=== PATIENT | female | born 1970 | race Caucasian/White ===

== ENCOUNTER 2016-03-09 12:37 | Emergency (ER) | payer MEDICAID ==
[~2016-03-09] VITALS: Ht 167.6 cm; Wt 81.0 kg
[~2016-03-09 12:37] MED LIST: 1-ME1LIQ PO; IBUP-232 PO; LAMO100 PO; LEVO.1 PO; PRIN10TA PO
[2016-03-09 12:47] VITALS: BP 124/92; PULSE 90; RESP 16; TEMP 98.6; O2SAT 97
[2016-03-09] MEDS ORDERED: LISI10TA3 PO (12:59)
[2016-03-09] MEDS ORDERED: WELLTAB39 PO (12:59)
[2016-03-09] MEDS ORDERED: LEVO.1 PO (12:59)
[2016-03-09] MEDS ORDERED: ARIP1TAB7 PO (12:59)
[2016-03-09] MEDS ORDERED: TRIAM.1%T TOPICAL (13:05)
[2016-03-09] MEDS ORDERED: PERM5CRE11 TOPICAL (13:05)
[2016-03-09] MEDS ORDERED: BACT800T5 PO (13:05)
--- NOTE | 2016-03-09 13:11 | PD ---
HPI Chief Complaint: Skin Problem Time Seen by Provider: 13:05 Travel History International Travel<30 days: No Contact w/Intl Traveler<30days: No Traveled to known affect area: No History of Present Illness HPI Patient is a 45-year-old female with chief complaint of "I think I have scabies again". She states she has had it several times, most recently 1 year prior. She states that for years she was camping in last evening developed itching. No attempts at palliation. She has "bumps" on her abdomen, buttocks and right arm. She denies any fever, ENT/URI symptoms, difficulty swallowing, change in phonation, wheezing is clear. She denies current . PFSH Past Medical History Blood Disorders: No Bipolar Disorder: Yes Anxiety: Yes Depression: Yes Cancer: No Cardiovascular Problems: Yes (htn on meds) Diabetes: No Diminished Hearing: No Endocrine: No Gastrointestinal Disorders: No Genitourinary: No Hiatal Hernia: No Hypertension: Yes Immune Disorder: No Implanted Vascular Access Dvce: No Musculoskeletal: No Neurologic: No Psychiatric: Yes (INSOMNIA) Reproductive: Yes (POLYCYSTIC OVARIES) Respiratory: No Immunizations Current: No Thyroid Disease: Yes Tetanus Vaccination: < 5 Years PNEUMOCCOCAL Vaccine (Year): 2 ?: Not LMP: 02/28/16 Menopausal: No : 4 Para: 1 Miscarriage: 0 : 3 Ovarian Cysts: Yes (POLY-CYSTIC DISEASE) Past Surgical History Appendectomy: Yes Body Medical Devices: insomnia Gynecologic Surgery: Yes (LEEP PROCEDURE) Joint Replacement: No Other Surgery: Yes Social History Alcohol Use: No Tobacco Use: Yes (2 PPD) Substance Use: No (FORMER PAIN PILLS) Allergies-Medications (Allergen,Severity, Reaction): Coded Allergies: Codeine (Verified Allergy, Severe, REDNESS, 03/09/16) patient states is not allergic to codeine anya Parson 03/09/16 Penicillin (Verified Allergy, Severe, Hives, 03/09/16) Darvocet-N 100 (Verified Adverse Reaction, Mild, NAUSEA, 03/09/16) *MDRO Multi-Drug Resistant Organism (Unverified Adverse Reaction, Unknown , 03/09/16) H/O MRSA per ED note Reported Meds & Prescriptions Reported Meds & Active Scripts Active Reported Abilify (Aripiprazole) 20 Mg Tab 20 Mg PO DAILY Wellbutrin Xl 24 HR (Bupropion HCl) 300 Mg Tab 300 Mg PO DAILY Synthroid (Levothyroxine Sodium) 100 Mcg Tab 100 Mcg PO DAILY Lisinopril 10 Mg Tab 10 Mg PO DAILY Review of Systems Except as stated in HPI: all other systems reviewed are Neg Physical Exam Narrative GENERAL: Well-developed and well-nourished adult female in no acute distress. SKIN: Patient has excoriations to the abdomen, buttocks, upper back and right forearm in various stages of healing with 2 areas of the bilateral upper back as likely as well a dry thinks mild cellulitis without induration or fluctuance. No warmth or discharge. Her are a few papular lesions on the abdomen and buttocks do appear to be in linear fashion consistent with scabies. Warm and dry. Good turgor without tenting. HEAD: Normocephalic and atraumatic. EYES: PERRL bilaterally, 5mm. EOMI bilaterally. No injection or icterus present. No proptosis. Lids without edema or erythema. ENT: Buccal mucosa pink and moist. Oropharynx free of erythema, tonsillar hypertrophy, masses, swelling, asymmetry and exudates. Uvula midline and airway patent. NECK: Supple, no midline tenderness, crepitus or step-offs. Trachea midline, no JVD. No cervical or facial lymphadenopathy. CARDIOVASCULAR: Regular rate and rhythm without murmurs, rubs, clicks or gallops. RESPIRATORY: Clear to auscultation bilaterally with symmetrical rise and fall, no distress or use of accessory muscles. MUSCULOSKELETAL: No gait disturbances. Patient freely moving all four extremities spontaneously. Extremities without clubbing, cyanosis, or edema. No obvious deformities. NEUROLOGIC: CN II-XII grossly intact. Awake and alert. Motor grossly within normal limits. Normal speech. PSYCHIATRIC: Appropriate mood and affect; insight and judgment normal. *Patient was examined in the presence of a nurse, Nelly, at all times* Data Data Last Documented VS Vital Signs Date Time Temp Pulse Resp B/P Pulse Ox O2 Delivery O2 Flow Rate FiO2 03/09/16 12:47 98.6 90 16 124/92 97 MDM Medical Decision Making Medical Screen Exam Complete: Yes Emergency Medical Condition: Yes Differential Diagnosis Scabies versus psychogenic pruritus versus dermatitis versus contact dermatitis versus cellulitis Narrative Course She is a 45-year-old female with a history of scabies presenting with concern that she has developed scabies again. She states that the itching and lesions in the last evening however shows some excoriations and minor cellulitis that appeared to be at least several days old. There are some papular lesions on the abdomen that are suggestive of scabies. She is afebrile and nontoxic appearing. His history of multidrug resistant organism, we'll prescribe Bactrim for cellulitis, Elimite and triamcinolone for the itching and possible scabies. Patient was recommended to clean all clothing and bedding in hot water setting available and follow-up with PCP or her hand edge bander.See discharge paperwork for further instructions. The plan was discussed with the patient who acknowledged their understanding and agreement. Reinforced the follow-up with primary care is critically important. Patient instructed on emergent conditions that should prompt return to ED. Diagnosis Primary Impression: Scabies Additional Impressions: Excoriation Cellulitis Qualified Code: L03.312 - Cellulitis of back except buttock Patient Instructions: Cellulitis (ED), General Instructions, Scabies (ED) Departure Forms: Tests/Procedures Additional Instructions: Take medication as prescribed Avoid scratching or picking at lesions Wash bedding and clothing in the hottest water setting available Follow-up with PCP in one to 2 days Return to the ED for any acute worsening of symptoms Med/Other Pt SpecificInfo: Prescription(s) given Scripts Triamcinolone Topical 0.1 % Oint1 Applic TOPICAL BID PRN (ITCHING) [address] on the face, neck or groin Prov:Bernie Elise MD 03/09/16 Permethrin Topical (Elimite Topical)5% Cream1 Applic TOPICAL ONCE #1 TUBE Apply from head to toe overnight and leave on for at least 8 hours and wash off in the morning, may repeat in 14 days if symptoms still present Prov:Bernie Elise MD 03/09/16 Sulfamethoxazole-Trimethoprim (Bactrim DS)800-160 Mg Tab1 Tab PO BID #20 TAB Prov:Bernie Elise MD 03/09/16 Disposition: 01 DISCHARGE HOME Condition: Stable Siddharth Merritt III Mar 09, 2016 13:10
== END 2016-03-09 13:31 | disposition home or self-care (01) ==
LOC: PHEFT 12:37
DX: B86 Scabies (principal); L03.312 Cellulitis of back [any part except buttock and flank]; I10 Essential (primary) hypertension; E07.9 Disorder of thyroid, unspecified; F17.210 Nicotine dependence, cigarettes, uncomplicated
CPT/HCPCS: 99282

== ENCOUNTER 2016-05-25 18:28 | Emergency (ER) | payer MEDICAID ==
[~2016-05-25] VITALS: Ht 167.6 cm; Wt 80.5 kg
[~2016-05-25 18:28] MED LIST changes: -1-ME1LIQ PO; +ARIP1TAB7 PO; +BACT800T5 PO; -IBUP-232 PO; -LAMO100 PO; +LISI10TA3 PO; +PERM5CRE11 TOPICAL; -PRIN10TA PO; +TRIAM.1%T TOPICAL; +WELLTAB39 PO
[2016-05-25 18:51] VITALS: BP 143/101; PULSE 91; RESP 17; TEMP 97.9; O2SAT 98
[2016-05-25] MEDS ORDERED: VENL75TA PO (20:01)
[2016-05-25] MEDS ORDERED: AMLO2.5T PO (20:01)
[2016-05-25] MEDS ORDERED: LITH300T3 PO (20:01)
--- NOTE | 2016-05-25 20:44 | PD ---
HPI Chief Complaint: Anxiety Time Seen by Provider: 20:31 Travel History International Travel<30 days: No Contact w/Intl Traveler<30days: No Traveled to known affect area: No History of Present Illness HPI The patient is a 45-year-old female that complains of anxiety, chest tightness, palpitations. 4 days. The patient knows this is a panic attack, she has had these before. She is followed by her primary care physician in [place]. She states there is no possibility of . She states she is going to follow-up with an vice president sales and marketing, this was recommended, she currently takes Synthroid. The patient also takes Effexor, Wellbutrin and lithium. Blood pressure medications are lisinopril and amlodipine. PFSH Past Medical History Blood Disorders: No Bipolar Disorder: Yes Anxiety: Yes Depression: Yes Cancer: No Cardiovascular Problems: Yes (htn on meds) Diabetes: No Diminished Hearing: No Endocrine: No Gastrointestinal Disorders: No Genitourinary: No Hiatal Hernia: No Hypertension: Yes Immune Disorder: No Implanted Vascular Access Dvce: No Musculoskeletal: No Neurologic: No Psychiatric: Yes (INSOMNIA) Reproductive: Yes (POLYCYSTIC OVARIES) Respiratory: No Immunizations Current: No Thyroid Disease: Yes PNEUMOCCOCAL Vaccine (Year): 2 ?: Not LMP: 2 WEEKS 05/14/16 Menopausal: No : 4 Para: 1 Miscarriage: 0 : 3 Ovarian Cysts: Yes (POLY-CYSTIC DISEASE) Past Surgical History Surgical History: No Previous Surgery Appendectomy: Yes Body Medical Devices: insomnia Gynecologic Surgery: Yes (LEEP PROCEDURE) Joint Replacement: No Other Surgery: Yes Social History Alcohol Use: No Tobacco Use: Yes (1 pd) Substance Use: No (FORMER PAIN PILLS) Allergies-Medications (Allergen,Severity, Reaction): Coded Allergies: Codeine (Verified Allergy, Severe, REDNESS, 05/25/16) patient states is not allergic to codeine anya Parson 03/09/16 Penicillin (Verified Allergy, Severe, Hives, 05/25/16) Darvocet-N 100 (Verified Adverse Reaction, Mild, NAUSEA, 05/25/16) *MDRO Multi-Drug Resistant Organism (Unverified Adverse Reaction, Unknown , 05/25/16) H/O MRSA per ED note Reported Meds & Prescriptions Reported Meds & Active Scripts Active Reported Amlodipine (Amlodipine Besylate) 2.5 Mg Tab 5 Mg PO DAILY Effexor (Venlafaxine HCl) 75 Mg Tab 75 Mg PO DAILY [place] Carbonate 300 Mg Tab 300 Mg PO BID Wellbutrin Xl 24 HR (Bupropion HCl) 300 Mg Tab 300 Mg PO DAILY Synthroid (Levothyroxine Sodium) 100 Mcg Tab 100 Mcg PO DAILY Lisinopril 10 Mg Tab 10 Mg PO DAILY Review of Systems Except as stated in HPI: all other systems reviewed are Neg Physical Exam Narrative GENERAL: The patient is alert, oriented 3, anxious in no apparent distress other than her anxiety. Her vital signs show blood pressure 143/101 but are otherwise normal. SKIN: Focused skin assessment warm/dry. The hair is dry and the patient states it is falling out. She denies pulling at her hair. HEAD: Atraumatic. Normocephalic. EYES: Pupils equal and round. No scleral icterus. No injection or drainage. ENT: No nasal bleeding or discharge. Mucous membranes pink and moist. NECK: Trachea midline. No JVD. CARDIOVASCULAR: Regular rate and rhythm. No murmur appreciated. RESPIRATORY: No accessory muscle use. Clear to auscultation. Breath sounds equal bilaterally. GASTROINTESTINAL: Abdomen soft, non-tender, nondistended. Hepatic and splenic margins not palpable. MUSCULOSKELETAL: No obvious deformities. No clubbing. No cyanosis. No edema. NEUROLOGICAL: Awake and alert. No obvious cranial nerve deficits. Motor grossly within normal limits. Normal speech. PSYCHIATRIC: Appropriate mood and affect; insight and judgment normal. Data Data Last Documented VS Vital Signs Date Time Temp Pulse Resp B/P Pulse Ox O2 Delivery O2 Flow Rate FiO2 05/25/16 18:51 97.9 91 17 143/101 98 Orders Alprazolam (Xanax) (05/25/16 20:45) Complete Blood Count With Diff (05/25/16 20:44) Basic Metabolic Panel (Bmp) (05/25/16 20:44) Thyroid Stimulating Hormone (05/25/16 20:44) [place] (Li) (05/25/16 20:44) Labs Laboratory Tests Test 05/25/16 20:55 White Blood Count 12.5 TH/MM3 Red Blood Count 4.70 MIL/MM3 Hemoglobin 14.4 GM/DL Hematocrit 42.2 % Mean Corpuscular Volume 89.9 FL Mean Corpuscular Hemoglobin 30.6 PG Mean Corpuscular Hemoglobin 34.0 % Concent Red Cell Distribution Width 13.9 % Platelet Count 235 TH/MM3 Mean Platelet Volume 8.7 FL Neutrophils (%) (Auto) 78.4 % Lymphocytes (%) (Auto) 16.3 % Monocytes (%) (Auto) 3.4 % Eosinophils (%) (Auto) 1.3 % Basophils (%) (Auto) 0.6 % Neutrophils # (Auto) 9.8 TH/MM3 Lymphocytes # (Auto) 2.0 TH/MM3 Monocytes # (Auto) 0.4 TH/MM3 Eosinophils # (Auto) 0.2 TH/MM3 Basophils # (Auto) 0.1 TH/MM3 CBC Comment DIFF FINAL Differential Comment Sodium Level 137 MEQ/L Potassium Level 3.8 MEQ/L Chloride Level 102 MEQ/L Carbon Dioxide Level 26.9 MEQ/L Anion Gap 8 MEQ/L Blood Urea Nitrogen 12 MG/DL Creatinine 0.86 MG/DL Estimat Glomerular Filtration 71 ML/MIN Rate Random Glucose 76 MG/DL Calcium Level 8.9 MG/DL Thyroid Stimulating Hormone 2.700 uIU/ML [address] [place] [address] Medical Decision Making Medical Screen Exam Complete: Yes Emergency Medical Condition: Yes Medical Record Reviewed: Yes Interpretation(s) The basic metabolic profile shows a GFR of 71 but is otherwise normal. The TSH is 2.7. The CBC shows a white count of 12,500 with 78% neutrophils but is otherwise normal. Differential Diagnosis Hyperthyroid, hypothyroid, anxiety reaction, elevated lithium level, electrolyte disorder, hypoglycemiaunlikely Narrative Course The patient appears to have an anxiety reaction. She appears to be critically adjusted on her thyroid medication and she has no hypoglycemia or electrolyte disorder. The lithium level will be completed until many hours, it was drawn an hour ago and still has not been picked up by the party supply specialist. It is unlikely that the patient has an elevated lithium level. She was just started on lithium. Plan: The patient will be given 3, 1 mg Xanax tablets to take at home. She is to follow-up with her primary care physician next week. She is encouraged to exercise. She came in stating she could not swallow but she had no problem swallowing the Xanax tablet with water here in emergency department. Diagnosis Primary Impression: Anxiety reaction Additional Instructions: Do not drink alcohol or drive on the Xanax. Exercise often works when you get anxious, you should try thismany people do this when they get anxious. Follow- up next week with your primary care physician. Med/Other Pt SpecificInfo: Prescription(s) given Scripts Alprazolam (Xanax)1 Mg Tab1 Mg PO Q8H PRN (ANXIETY) #3 TAB Ref 0 Prov:Broderick Flores MD 05/25/16 Disposition: 01 DISCHARGE HOME Condition: Stable Broderick Flores MD May 25, 2016 20:44
[2016-05-25] MEDS ORDERED: ALPRAZolam 0.5 MG TAB PO ONE (20:45)
[2016-05-25] MEDS ORDERED: ALPRAZolam 1 MG TAB PO ONE (20:45)
[2016-05-25 21:06] LABS: AUTOMATED NEUTROPHIL # 9.8 TH/MM3 (1.8-7.7); BASOPHIL # 0.1 TH/MM3 (0-0.2); BASOPHIL % 0.6 % (0.0-2.0); EOSINOPHIL # 0.2 TH/MM3 (0-0.4); EOSINOPHIL % 1.3 % (0.0-4.0); HEMATOCRIT 42.2 % (35.0-46.0); LYMPH % 16.3 % (9.0-44.0); MEAN CELL VOLUME 89.9 FL (80.0-100.0); MEAN CORPUSCULAR HEMOGLOBIN 30.6 PG (27.0-34.0); MONO % 3.4 % (0.0-8.0); NEUT % 78.4 % (16.0-70.0); PLATELET COUNT 235 TH/MM3 (150-450); RED CELL DISTRIBUTION WIDTH 13.9 % (11.6-17.2); WHITE BLOOD COUNT 12.5 TH/MM3 (4.0-11.0)
[2016-05-25 21:09] LABS: HEMO FLAGS DIFF FINAL
[2016-05-25 21:16] LABS: POTASSIUM 3.8 MEQ/L (3.5-5.1)
[2016-05-25 21:19] LABS: BICARBONATE 26.9 MEQ/L (21.0-32.0)
[2016-05-25] MEDS ORDERED: XANA1TAB2 PO (22:07)
== END 2016-05-25 22:14 | disposition home or self-care (01) ==
LOC: PHED 18:28
DX: F41.9 Anxiety disorder, unspecified (principal)
CPT/HCPCS: 80048; 80178; 84443; 85025; 99283

== ENCOUNTER 2016-06-01 17:55 | Emergency (ER) | payer MEDICAID ==
[~2016-06-01] VITALS: Ht 167.6 cm; Wt 80.0 kg
[2016-06-01] VITALS (9 sets, daily range): BP systolic 137–156; BP diastolic 71–97; PULSE 74–88; RESP 16–18; TEMP 99; O2SAT 96–100
[~2016-06-01 17:55] MED LIST changes: +AMLO2.5T PO; -ARIP1TAB7 PO; -BACT800T5 PO; +LITH300T3 PO; -PERM5CRE11 TOPICAL; -TRIAM.1%T TOPICAL; +VENL75TA PO; +XANA1TAB2 PO
[2016-06-01] MEDS ORDERED: SODIUM CHLORIDE 0.9% FLUSH 10 ML FLUSH IVF PRN (19:15)
[2016-06-01] MEDS ORDERED: ASPIRIN 81 MG CHEW TAB PO ONE (19:15)
[2016-06-01] MEDS: NITROGLYCERIN 0.4 MG SL 25 TABS/BTL SL SCH ×3 (19:20→19:48)
[2016-06-01 19:50] LABS: AUTOMATED NEUTROPHIL # 7.2 TH/MM3 (1.8-7.7); BASOPHIL % 0.4 % (0.0-2.0); EOSINOPHIL # 0.1 TH/MM3 (0-0.4); EOSINOPHIL % 1.5 % (0.0-4.0); HEMATOCRIT 43.1 % (35.0-46.0); HEMO FLAGS DIFF FINAL; LYMPH % 20.4 % (9.0-44.0); MEAN CELL VOLUME 90.3 FL (80.0-100.0); MEAN CORPUSCULAR HEMOGLOBIN 30.8 PG (27.0-34.0); MEAN CORPUSCULAR HGB CONC 34.1 % (32.0-36.0); MONO % 5.7 % (0.0-8.0); PLATELET COUNT 189 TH/MM3 (150-450); RED BLOOD COUNT 4.77 MIL/MM3 (4.00-5.30); RED CELL DISTRIBUTION WIDTH 14.4 % (11.6-17.2); WHITE BLOOD COUNT 9.9 TH/MM3 (4.0-11.0)
[2016-06-01 19:57] LABS: CHLORIDE 102 MEQ/L (98-107); POTASSIUM 3.6 MEQ/L (3.5-5.1); SODIUM (NA) 138 MEQ/L (136-145)
[2016-06-01 20:00] LABS: ANION GAP 10 MEQ/L (5-15); BICARBONATE 26.1 MEQ/L (21.0-32.0); MAGNESIUM 2.2 MG/DL (1.5-2.5)
[2016-06-01] MEDS ORDERED: ONDANSETRON HCL 4 MG/2 ML VIAL IV PUSH ONE (20:00)
[2016-06-01] MEDS ORDERED: HYDROmorphone HCL PF 1 MG/ML VIAL IV PUSH ONE (20:00)
[2016-06-01 20:01] LABS: BLOOD UREA NITROGEN 11 MG/DL (7-18)
--- NOTE | 2016-06-01 20:01 | RADHPO ---
EXAM DATE/TIME: 06/01/2016 19:07 [facility] COMPARISON: No previous studies available for comparison. INDICATIONS : Chest pain and hypertension. MEDICAL HISTORY : Hypertension. SURGICAL HISTORY : None. ENCOUNTER: Initial ACUITY: 1 day PAIN SCORE: 5/10 LOCATION: Bilateral chest FINDINGS: A single view of the chest demonstrates the lungs to be symmetrically aerated without evidence of mas s, infiltrate or effusion. The cardiomediastinal contours are unremarkable. Osseous structures are intact. CONCLUSION: The lungs are clear. Alexx Barber MD on June 01, 2016 at 19:59 Board Certified Radiologist. This report was verified electronically.
[2016-06-01 20:03] LABS: APTT (PATIENT) 26.8 SEC (24.3-30.1); PROTHROMBIN TIME - PATIENT 10.5 SEC (9.8-11.6)
[2016-06-01 20:04] LABS: GLOMERULAR FILTRATION RATE 77 ML/MIN (>89)
[2016-06-01 20:14] LABS: CREATINE KINASE 57 U/L (26-192)
[2016-06-01] MEDS ORDERED: KETOROLAC TROMETHAMINE 30 MG/ML (IVP) VIAL IV PUSH ONE (20:45)
--- NOTE | 2016-06-01 20:45 | PD ---
HPI Chief Complaint: Hypertension Time Seen by Provider: 19:57 Travel History International Travel<30 days: No Contact w/Intl Traveler<30days: No Traveled to known affect area: No History of Present Illness HPI 45-year-old female presents to the emergency department for complaint of not feeling well times one day. Patient has noted that her blood pressure is been quite elevated reportedly at home but pressure was 200/140. Patient takes amlodipine for blood pressure management and does not know the dose but has not had a change in the dose for several years. Patient has had no nausea no vomiting no shortness of breath no referred neck jaw back shoulder or arm pain. Chest pain is sharp in nature and is worsened by palpating her chest wall. No abdominal pain. Patient states that he has had episodes of sweating. Patient does check her blood pressure prior to coming to the emergency room because she could not get her blood pressure cuff that with her roommates room. Patient does not report any headache blurred vision double vision confusion change in speech or upper or lower extremity numbness tingling or weakness or ataxia of gait. Patient rates pain 8/10 intensity. PFSH Past Medical History Narrative Medical Hypertension, bipolar disorder, polycystic ovary disease, LEEP procedure, appendectomy, tobacco use; nursing notes reviewed Blood Disorders: No Bipolar Disorder: Yes Anxiety: Yes Depression: Yes Cancer: No Cardiovascular Problems: Yes (htn on meds) Diabetes: No Diminished Hearing: No Endocrine: No Gastrointestinal Disorders: No Genitourinary: No Hiatal Hernia: No Hypertension: Yes Immune Disorder: No Implanted Vascular Access Dvce: No Musculoskeletal: No Neurologic: No Psychiatric: Yes (INSOMNIA) Reproductive: Yes (POLYCYSTIC OVARIES) Respiratory: No Immunizations Current: No Thyroid Disease: Yes PNEUMOCCOCAL Vaccine (Year): 2 ?: Not LMP: two weeks ago Menopausal: No : 4 Para: 1 Miscarriage: 0 : 3 Ovarian Cysts: Yes (POLY-CYSTIC DISEASE) Past Surgical History Appendectomy: Yes Body Medical Devices: insomnia Gynecologic Surgery: Yes (LEEP PROCEDURE) Joint Replacement: No Other Surgery: Yes Social History Alcohol Use: No Tobacco Use: Yes (1 pd) Substance Use: No (FORMER PAIN PILLS) Allergies-Medications (Allergen,Severity, Reaction): Coded Allergies: Codeine (Verified Allergy, Severe, REDNESS, 05/25/16) patient states is not allergic to codeine anya Parson 03/09/16 Penicillin (Verified Allergy, Severe, Hives, 05/25/16) Darvocet-N 100 (Verified Adverse Reaction, Mild, NAUSEA, 05/25/16) *MDRO Multi-Drug Resistant Organism (Unverified Adverse Reaction, Unknown , 05/25/16) H/O MRSA per ED note Reported Meds & Prescriptions Reported Meds & Active Scripts Active Reported Amlodipine (Amlodipine Besylate) 2.5 Mg Tab 5 Mg PO DAILY Effexor (Venlafaxine HCl) 75 Mg Tab 75 Mg PO DAILY [place] Carbonate 300 Mg Tab 300 Mg PO BID Wellbutrin Xl 24 HR (Bupropion HCl) 300 Mg Tab 300 Mg PO DAILY Synthroid (Levothyroxine Sodium) 100 Mcg Tab 100 Mcg PO DAILY Review of Systems Except as stated in HPI: all other systems reviewed are Neg Physical Exam Narrative GENERAL: Well-developed well-nourished female in no acute distress no respiratory distress SKIN: Warm and dry. HEAD: Atraumatic. Normocephalic. EYES: Pupils equal and round. No scleral icterus. No injection or drainage. ENT: No nasal bleeding or discharge. Mucous membranes pink and moist. NECK: Trachea midline. No JVD. CARDIOVASCULAR: Regular rate and rhythm. RESPIRATORY: No accessory muscle use. Clear to auscultation. Breath sounds equal bilaterally. GASTROINTESTINAL: Abdomen soft, non-tender, nondistended. Hepatic and splenic margins not palpable. MUSCULOSKELETAL: Extremities without clubbing, cyanosis, or edema. No obvious deformities. NEUROLOGICAL: Awake and alert. No obvious cranial nerve deficits. Motor grossly within normal limits. Five out of 5 muscle strength in the arms and legs. Normal speech. PSYCHIATRIC: Appropriate mood and affect; insight and judgment normal. Data Data Last Documented VS Vital Signs Date Time Temp Pulse Resp B/P Pulse Ox O2 Delivery O2 Flow Rate FiO2 06/01/16 22:50 72 17 152/85 97 06/01/16 21:59 Room Air 06/01/16 17:58 99.0 Orders Electrocardiogram (06/01/16 19:04) Basic Metabolic Panel (Bmp) (06/01/16 19:04) Ckmb (Isoenzyme) Profile (06/01/16 19:04) Complete Blood Count With Diff (06/01/16 19:04) Magnesium (Mg) (06/01/16 19:04) Prothrombin Time / Inr (Pt) (06/01/16 19:04) Act Partial Throm Time (Ptt) (06/01/16 19:04) Troponin I (06/01/16 19:04) Chest, Single Ap (06/01/16 19:04) Ecg Monitoring (06/01/16 19:04) Bilateral Bp Monitoring (06/01/16 19:04) Iv Access Insert/Monitor (06/01/16 19:04) Oximetry (06/01/16 19:04) Oxygen Administration (06/01/16 19:04) Aspirin Chew (Aspirin Chew) (06/01/16 19:15) Sodium Chloride 0.9% Flush (Ns Flush) (06/01/16 19:15) Nitroglycerin Sl (Nitrostat Sl) (06/01/16 19:15) [place] (Li) (06/01/16 19:04) Ondansetron Inj (Zofran Inj) (06/01/16 20:00) Hydromorphone Pf Inj (Dilaudid Pf Inj) (06/01/16 20:00) Ketorolac Inj (Toradol Inj) (06/01/16 20:45) Nitroglycerin 2% Oint (Nitroglycerin 2% (06/01/16 21:45) Labs Laboratory Tests Test 06/01/16 19:20 White Blood Count 9.9 TH/MM3 Red Blood Count 4.77 MIL/MM3 Hemoglobin 14.7 GM/DL Hematocrit 43.1 % Mean Corpuscular Volume 90.3 FL Mean Corpuscular Hemoglobin 30.8 PG Mean Corpuscular Hemoglobin 34.1 % Concent Red Cell Distribution Width 14.4 % Platelet Count 189 TH/MM3 Mean Platelet Volume 9.1 FL Neutrophils (%) (Auto) 72.0 % Lymphocytes (%) (Auto) 20.4 % Monocytes (%) (Auto) 5.7 % Eosinophils (%) (Auto) 1.5 % Basophils (%) (Auto) 0.4 % Neutrophils # (Auto) 7.2 TH/MM3 Lymphocytes # (Auto) 2.0 TH/MM3 Monocytes # (Auto) 0.6 TH/MM3 Eosinophils # (Auto) 0.1 TH/MM3 Basophils # (Auto) 0.0 TH/MM3 CBC Comment DIFF FINAL Differential Comment Prothrombin Time 10.5 SEC Prothromb Time International 1.0 RATIO Ratio Activated Partial 26.8 SEC Thromboplast Time Sodium Level 138 MEQ/L Potassium Level 3.6 MEQ/L Chloride Level 102 MEQ/L Carbon Dioxide Level 26.1 MEQ/L Anion Gap 10 MEQ/L Blood Urea Nitrogen 11 MG/DL Creatinine 0.80 MG/DL Estimat Glomerular Filtration 77 ML/MIN Rate Random Glucose 86 MG/DL Calcium Level 8.9 MG/DL Magnesium Level 2.2 MG/DL Total Creatine Kinase 57 U/L Troponin I LESS THAN 0.02 NG/ML [place] Level 0.2 MEQ/L [facility] Medical Decision Making Medical Screen Exam Complete: Yes Emergency Medical Condition: Yes Medical Record Reviewed: Yes Interpretation(s) EKG normal sinus rhythm rate [address] elevation or injury pattern change noted Last Impressions Chest X-Ray 06/01/161903 Signed Impressions: Service Date/Time: Wednesday, June 01, 2016 19:07 - CONCLUSION: The lungs are clear. Alexx Barber MD CBC & BMP Diagram 06/01/16 19:20 Vital Signs Date Time Temp Pulse Resp B/P Pulse Ox O2 Delivery O2 Flow Rate FiO2 06/01/16 20:15 Room Air 06/01/16 20:15 Room Air 06/01/16 20:13 80 16 141/85 96 Room Air 142/79 06/01/16 19:00 88 18 150/92 98 Room Air 06/01/16 19:00 Room Air 06/01/16 18:46 80 18 156/97 100 Room Air 06/01/16 17:58 99.0 87 18 152/90 96 Room Air Troponin I: Less than 0.02, not elevated [place]: 0.2, not elevated not toxic Differential Diagnosis Uncontrolled hypertension hypertensive urgency chest pain ACS TN aortic dissection musculoskeletal/chest wall pain Narrative Course @ 8:44 PM blood pressure has improved; headache resolved; reproducible palpable sharp chest wall pain unchanged Patient administered aspirin and supplemental nitroglycerin. After one sublingual nitroglycerin patient developed headache and refused any further nitroglycerin and stated her sharp chest pain was not relieved and chest wall tenderness was not improved. Patient's blood pressure has improved continues to complain of headache post nitroglycerin sublingual and sharp chest pain administered Zofran and Dilaudid 0.5 mg IV Patient reports headache is resolved but continues to have tenderness to the chest wall patient administered Toradol 30 mg IV Patient administered nitro paste 1 inch to the chest wall and symptoms resolved patient informed of plan to admit to chest pain center for chest pain as well as poorly controlled hypertension; patient refuses admission. Discussed in detail risk benefit of staying in the hospital versus leaving AGAINST MEDICAL ADVICE. Patient reports that she understands her questions have been answered to her satisfaction but she still made the decision to leave AGAINST MEDICAL ADVICE. AMA: The risks of leaving against medical advice without further evaluation treatment were discussed with the patient. These risks include cardiac dysfunction, cardiac dysrhythmia, possible heart attack, possible stroke or . The patient indicated understanding of these risks and appeared to have the capacity to make this decision. Diagnosis Primary Impression: Hypertension, poor control Additional Impression: Chest pain Disposition: 07 AGAINST MEDICAL ADVICE Condition: Stable Gladis Carlos MD Jun 01, 2016 20:45
[2016-06-01] MEDS ORDERED: NITROGLYCERIN 2% OINT 1 GM PACKET TOPICAL ONE (21:45)
--- NOTE | 2016-06-01 23:43 | EKG ---
Date Performed: 06/01/2016 Time Performed: 19:10:46 PTAGE: 45 years EKG: Sinus rhythm . Normal ECG PREVIOUS TRACING : 11/13/2011 15.33 DOCTOR: Maikol Ruby Interpretating Date/Time 06/01/2016 23:41:54
== END 2016-06-01 23:02 | disposition left against medical advice (07) ==
LOC: PHED 17:55
DX: I10 Essential (primary) hypertension (principal); R07.9 Chest pain, unspecified; E28.2 Polycystic ovarian syndrome; E07.9 Disorder of thyroid, unspecified; F31.9 Bipolar disorder, unspecified; F41.9 Anxiety disorder, unspecified; F17.200 Nicotine dependence, unspecified, uncomplicated; Z86.14 Personal history of Methicillin resistant Staphylococcus aureus infection
CPT/HCPCS: 71010; 80048; 80178; 82550; 83735; 84484; 85025; 85610; 85730; 93005; 96374; 96375; 99285; J1170; J1885; J2405

== ENCOUNTER 2017-04-30 16:28 | Emergency (ER) | payer MEDICAID ==
[~2017-04-30] VITALS: Ht 167.6 cm; Wt 97.0 kg
[~2017-04-30 16:28] MED LIST changes: -LISI10TA3 PO; -XANA1TAB2 PO
[2017-04-30 16:35] VITALS: BP 135/70; PULSE 90; RESP 16; TEMP 99.3; O2SAT 97
[2017-04-30] MEDS ORDERED: SODIUM CHLOR 0.9% 1000 ML INJ 1,000 ML IV SCH (17:33)
[2017-04-30 17:38] LABS: AUTOMATED NEUTROPHIL # 5.6 TH/MM3 (1.8-7.7); BASOPHIL % 0.4 % (0.0-2.0); EOSINOPHIL # 0.1 TH/MM3 (0-0.4); EOSINOPHIL % 0.8 % (0.0-4.0); HEMATOCRIT 38.4 % (35.0-46.0); HEMOGLOBIN 13.2 GM/DL (11.6-15.3); LYMPH % 28.4 % (9.0-44.0); LYMPHOCYTE # 2.5 TH/MM3 (1.0-4.8); MEAN CELL VOLUME 83.6 FL (80.0-100.0); MEAN CORPUSCULAR HEMOGLOBIN 28.7 PG (27.0-34.0); MEAN CORPUSCULAR HGB CONC 34.4 % (32.0-36.0); MEAN PLATELET VOLUME 8.7 FL (7.0-11.0); MONO % 5.3 % (0.0-8.0); MONOCYTE # 0.5 TH/MM3 (0-0.9); NEUT % 65.1 % (16.0-70.0); PLATELET COUNT 229 TH/MM3 (150-450); RED BLOOD COUNT 4.59 MIL/MM3 (4.00-5.30); RED CELL DISTRIBUTION WIDTH 13.2 % (11.6-17.2); WHITE BLOOD COUNT 8.6 TH/MM3 (4.0-11.0)
--- NOTE | 2017-04-30 17:39 | PD ---
HPI Chief Complaint: GI Complaint Time Seen by Provider: 17:24 Travel History International Travel<30 days: No Contact w/Intl Traveler<30days: No Traveled to known affect area: No History of Present Illness HPI 46-year-old female currently in recovery for narcotic abuse, presents the emergency department with upper abdominal cramping, nausea, vomiting, with question of hemoptysis in the last 2 days. Patient also states occasional diarrhea. Patient denies fever, chills, urinary symptoms, or vaginal symptoms. Patient denies chest pain or shortness of breath. Patient has no upper respiratory symptoms. Pain is about an 8 out of 10. Patient does not want any narcotics. Patient has history of MRSA, is allergic to Tylenol, codeine, penicillin, and propoxyphene. PFSH Past Medical History Blood Disorders: No Bipolar Disorder: Yes Anxiety: Yes Depression: Yes Cancer: No Cardiovascular Problems: Yes (htn on meds) Diabetes: No Diminished Hearing: No Endocrine: No Gastrointestinal Disorders: No Genitourinary: No Hiatal Hernia: No Hypertension: Yes Immune Disorder: No Implanted Vascular Access Dvce: No Musculoskeletal: No Neurologic: No Psychiatric: Yes (INSOMNIA) Reproductive: Yes (POLYCYSTIC OVARIES) Respiratory: No Immunizations Current: No Thyroid Disease: Yes PNEUMOCCOCAL Vaccine (Year): 2 Menopausal: No : 4 Para: 1 Miscarriage: 0 : 3 Ovarian Cysts: Yes (POLY-CYSTIC DISEASE) Past Surgical History Appendectomy: Yes Body Medical Devices: insomnia Gynecologic Surgery: Yes (LEEP PROCEDURE) Joint Replacement: No Other Surgery: Yes Social History Alcohol Use: No Tobacco Use: Yes (1 pd) Substance Use: No (FORMER PAIN PILLS) Allergies-Medications (Allergen,Severity, Reaction): Coded Allergies: codeine (Unverified Allergy, Severe, REDNESS, 04/30/17) patient states is not allergic to codeine anya Parson 03/09/16 penicillin G (Unverified Allergy, Severe, Hives, 04/30/17) acetaminophen (Unverified Adverse Reaction, Mild, NAUSEA, 04/30/17) propoxyphene (Unverified Adverse Reaction, Mild, NAUSEA, 04/30/17) *MDRO Multi-Drug Resistant Organism (Unverified Adverse Reaction, Unknown , 04/30/17) H/O MRSA per ED note Reported Meds & Prescriptions Reported Meds & Active Scripts Active Reported Trazodone (Trazodone HCl) 150 Mg Tablet 150 Mg PO HS Latuda (Lurasidone) 60 Mg Tab 60 Mg PO DAILY Amlodipine (Amlodipine Besylate) 2.5 Mg Tab 5 Mg PO DAILY Effexor (Venlafaxine HCl) 75 Mg Tab 75 Mg PO DAILY Synthroid (Levothyroxine Sodium) 100 Mcg Tab 100 Mcg PO DAILY Review of Systems Except as stated in HPI: all other systems reviewed are Neg General / Constitutional: No: Fever Eyes: No: Visual changes HENT: No: Headaches Cardiovascular: No: Chest Pain or Discomfort Respiratory: No: Shortness of Breath Gastrointestinal: Positive: Nausea, Vomiting, Diarrhea, Abdominal Pain, Hematemesis, No: Hematochezia, Constipation, Changes in Bowel Habits, Indigestion, Dysphagia, Loss of Appetite Genitourinary: No: Dysuria Musculoskeletal: No: Pain Skin: No Rash Neurologic: No: Weakness Psychiatric: No: Depression Endocrine: No: Polydipsia Hematologic/Lymphatic: No: Easy Bruising Physical Exam Narrative GENERAL: Patient appears anxious but otherwise in mild distress. SKIN: Warm and dry. Normal color. Normal turgor. HEAD: Atraumatic. Normocephalic. EYES: Pupils equal and round. No scleral icterus. No injection or drainage. ENT: No nasal bleeding or discharge. Mucous membranes pink and moist. Pharynx is clear. Airway is patent. NECK: Trachea midline. Supple and nontender. CARDIOVASCULAR: Regular rate and rhythm. RESPIRATORY: No accessory muscle use. Clear to auscultation. Breath sounds equal bilaterally. GASTROINTESTINAL: Abdomen soft, mild to moderate diffuse epigastric tenderness, nondistended. No point tenderness or rebound. Negative Burkett sign. No CVA tenderness. Hepatic and splenic margins not palpable. MUSCULOSKELETAL: Extremities without clubbing, cyanosis, or edema. No obvious deformities. NEUROLOGICAL: Awake and alert. No obvious cranial nerve deficits. Motor grossly within normal limits. Five out of 5 muscle strength in the arms and legs. Normal speech. PSYCHIATRIC: Appropriate mood and affect; insight and judgment normal. Data Data Last Documented VS Vital Signs Date Time Temp Pulse Resp B/P (MAP) Pulse Ox O2 Delivery O2 Flow Rate FiO2 04/30/17 17:58 16 98 Room Air 04/30/17 16:35 99.3 90 135/70 (91) Orders Orders Complete Blood Count With Diff (04/30/17 16:37) Comprehensive Metabolic Panel (04/30/17 16:37) Urinalysis - C+S If Indicated (04/30/17 16:37) Ed Urine Pregnancytest Poc (04/30/17 16:37) Lipase (04/30/17 17:33) Lactic Acid (04/30/17 17:33) Prothrombin Time / Inr (Pt) (04/30/17 17:33) Act Partial Throm Time (Ptt) (04/30/17 17:33) Ct Abd/Pel W Iv Contrast(Rout) (04/30/17 17:33) Iv Access Insert/Monitor (04/30/17 17:33) Ecg Monitoring (04/30/17 17:33) Oximetry (04/30/17 17:33) Ondansetron Inj (Zofran Inj) (04/30/17 17:45) Pantoprazole Inj (Protonix Inj) (04/30/17 17:45) Sodium Chlor 0.9% 1000 Ml Inj (Ns 1000 M (04/30/17 17:33) Sodium Chloride 0.9% Flush (Ns Flush) (04/30/17 17:45) Dicyclomine Inj (Bentyl Inj) (04/30/17 17:45) Al-Mag Hy-Si 40-40-4 Mg/Ml Liq (Mag-Al P (04/30/17 17:45) Lidocaine 2% Viscous (Xylocaine 2% Visco (04/30/17 17:45) Electrocardiogram (04/30/17 17:51) Diphenhydramine Inj (Benadryl Inj) (04/30/17 18:30) Labs Laboratory Tests Test 04/30/17 16:40 04/30/17 18:05 White Blood Count 8.6 TH/MM3 Red Blood Count 4.59 MIL/MM3 Hemoglobin 13.2 GM/DL Hematocrit 38.4 % Mean Corpuscular Volume 83.6 FL Mean Corpuscular Hemoglobin 28.7 PG Mean Corpuscular Hemoglobin Concent 34.4 % Red Cell Distribution Width 13.2 % Platelet Count 229 TH/MM3 Mean Platelet Volume 8.7 FL Neutrophils (%) (Auto) 65.1 % Lymphocytes (%) (Auto) 28.4 % Monocytes (%) (Auto) 5.3 % Eosinophils (%) (Auto) 0.8 % Basophils (%) (Auto) 0.4 % Neutrophils # (Auto) 5.6 TH/MM3 Lymphocytes # (Auto) 2.5 TH/MM3 Monocytes # (Auto) 0.5 TH/MM3 Eosinophils # (Auto) 0.1 TH/MM3 Basophils # (Auto) 0.0 TH/MM3 CBC Comment DIFF FINAL Differential Comment Urine Color YELLOW Urine Turbidity CLEAR Urine pH 7.0 Urine Specific [place] 1.011 Urine Protein NEG mg/dL Urine Glucose (UA) NEG mg/dL Urine Ketones NEG mg/dL Urine Occult Blood NEG Urine Nitrite NEG Urine Bilirubin NEG Urine Urobilinogen LESS THAN 2.0 MG/DL Urine Leukocyte Esterase TRACE Urine WBC 1 /hpf Urine Squamous Epithelial Cells 4 /hpf Microscopic Urinalysis Comment CULT NOT INDICATED Blood Urea Nitrogen 6 MG/DL Creatinine 0.91 MG/DL Random Glucose 98 MG/DL Total Protein 7.9 GM/DL Albumin 3.7 GM/DL Calcium Level 8.5 MG/DL Alkaline Phosphatase 90 U/L Aspartate Amino Transf (AST/SGOT) 21 U/L Alanine Aminotransferase (ALT/SGPT) 25 U/L Total Bilirubin 0.4 MG/DL Sodium Level 137 MEQ/L Potassium Level 3.4 MEQ/L Chloride Level 104 MEQ/L Carbon Dioxide Level 25.5 MEQ/L Anion Gap 8 MEQ/L Estimat Glomerular Filtration Rate 66 ML/MIN Prothrombin Time 10.0 SEC Prothromb Time International Ratio 1.0 RATIO Activated Partial Thromboplast Time 25.3 SEC Lactic Acid Level 0.9 mmol/L Lipase 130 U/L [facility] Medical Decision Making Medical Screen Exam Complete: Yes Emergency Medical Condition: Yes Medical Record Reviewed: Yes Differential Diagnosis Gastritis. Nausea and vomiting. Renal colic. Narrative Course Patient appears medically stable at time of exam. Labs ordered including CBC, CMP, lipase and urinalysis. IV access is obtained and the patient is given 4 mg Zofran IV, and a GI cocktail p.o. Patient is given 40 mg pantoprazole IV. Patient is complaining about headache and I gave her 50 mg diphenhydramine IV. I have withheld narcotics, per patient's request. I have held Toradol as the patient is complaining of abdominal discomfort with possible hematemesis. CBC is unremarkable. CMP is unremarkable except for potassium 3.4. BUN is 6, GFR 66. Urinalysis is unremarkable. Abdominal pelvic CT is pending. 1900 hrs. care of the patient is turned over to Michelle Lilly NP. She will make final disposition of the patient. Condition: Stable Arias Tran Apr 30, 2017 17:39
[2017-04-30] MEDS ORDERED: LIDOCAINE VISCOUS 2% SOLN 15 ML UDC PO ONE (17:45)
[2017-04-30] MEDS ORDERED: PANTOPRAZOLE SODIUM 40 MG VIAL IVP ONE (17:45)
[2017-04-30] MEDS ORDERED: DICYCLOMINE HCL 20 MG/2 ML VIAL IM ONE (17:45)
[2017-04-30] MEDS ORDERED: ONDANSETRON HCL 4 MG/2 ML VIAL IVP ONE (17:45)
[2017-04-30] MEDS ORDERED: ALUMINUM/MAGNESIUM/SIMETH 30 ML CUP PO ONE (17:45)
[2017-04-30] MEDS ORDERED: SODIUM CHLORIDE 0.9% FLUSH 10 ML FLUSH IV FLUSH PRN (17:45)
[2017-04-30 17:47] LABS: BILIRUBIN, URINE NEG (NEG); BLOOD, URINE NEG (NEG); GLUCOSE,URINE NEG (NEG); KETONE, URINE NEG (NEG); NITRITE,URINE NEG (NEG); SQUAMOUS EPITHELIAL CELL URINE 4 /hpf (0-5); URINE COLOR YELLOW (YELLW/STRAW); URINE LEUKOCYTE ESTERASE TRACE (NEG)
[2017-04-30 17:58] VITALS: RESP 16; O2SAT 98
[2017-04-30 18:02] LABS: ALBUMIN 3.7 GM/DL (3.4-5.0); ALT (GPT) 25 U/L (10-53); AST (GOT) 21 U/L (15-37); BICARBONATE 25.5 MEQ/L (21.0-32.0); BLOOD UREA NITROGEN 6 MG/DL (7-18); CALCIUM 8.5 MG/DL (8.5-10.1); CHLORIDE 104 MEQ/L (98-107); CREATININE 0.91 MG/DL (0.50-1.00); GLOMERULAR FILTRATION RATE 66 ML/MIN (>89); GLUCOSE,RANDOM 98 MG/DL (74-106); SODIUM (NA) 137 MEQ/L (136-145)
[2017-04-30] MEDS ORDERED: LURA1TAB2 PO (18:02)
[2017-04-30] MEDS ORDERED: TRAZ1TAB14 PO (18:02)
[2017-04-30 18:05] LABS: ALKALINE PHOSPHATASE 90 U/L (45-117); TOTAL BILIRUBIN ADULT 0.4 MG/DL (0.2-1.0); TOTAL PROTEIN 7.9 GM/DL (6.4-8.2)
[2017-04-30] MEDS ORDERED: diphenhydrAMINE HCL 50 MG/ML VIAL IV PUSH ONE (18:30)
[2017-04-30] MEDS ORDERED: IOHEXOL 350 MG/ML 10 ML VIAL (for RAD DIAG) IVCONTRAST ONE (19:22)
--- NOTE | 2017-04-30 19:43 | RADRPT ---
EXAM DATE/TIME: 04/30/2017 19:09 [facility] COMPARISON: CT ABDOMEN & PELVIS W CONTRAST, January 04, 2015, 20:09. INDICATIONS : Abdomen pain. IV CONTRAST: 100 cc Omnipaque 350 (iohexol) IV ORAL CONTRAST: No oral contrast ingested. RADIATION DOSE: 16.40 CTDIvol (mGy) MEDICAL HISTORY : Hypertension. Polycystic kidney disease. SURGICAL HISTORY : Appendectomy. ENCOUNTER: Initial ACUITY: 1 day PAIN SCALE: 5/10 LOCATION: Bilateral abdomen TECHNIQUE: Volumetric scanning of the abdomen and pelvis was performed. Using automated exposure control and ad justment of the mA and/or kV according to patient size, radiation dose was kept as low as reasonably achievable to obtain optimal diagnostic quality images. DICOM format image data is available electro nically for review and comparison. FINDINGS: LOWER LUNGS: The visualized lower lungs are clear. LIVER: There is a stable 12 mm low density lesion within the left lobe of the liver consistent with cyst or possible stable solid nodule which is unchanged compared to January 2015. There is no dilation of th e biliary tree. No calcified gallstones. SPLEEN: Normal size without lesion. PANCREAS: Within normal limits. KIDNEYS: Normal in size and shape. There is no mass, stone or hydronephrosis. ADRENAL GLANDS: Within normal limits. VASCULAR: There is no aortic aneurysm. BOWEL/MESENTERY: Uncomplicated colonic diverticulosis is noted. ABDOMINAL WALL: Within normal limits. RETROPERITONEUM: There is no lymphadenopathy. BLADDER: No wall thickening or mass. REPRODUCTIVE: Within normal limits. INGUINAL: There is no lymphadenopathy or hernia. MUSCULOSKELETAL: Degenerative changes and scoliosis of the thoracolumbar spine are noted CONCLUSION: 1. Uncomplicated colonic diverticulosis. 2. Stable 12 mm low density nodule within the left lobe of liver consistent with cyst or possible sta ble solid nodule. 3. Degenerative changes and scoliosis of the thoracolumbar spine. Warner Banerjee MD on April 30, 2017 at 19:38 Board Certified Radiologist. This report was verified electronically.
--- NOTE | 2017-04-30 19:48 | PD ---
Physical Exam Date Seen by Provider: Apr 30, 2017 Time Seen by Provider: 18:30 Narrative I, Dr. Varma, have reviewed the advance practice practitioner's documentation and am in agreement, met with the patient face to face, made the diagnosis, and the medical decision making was done by me. *My assessment and Findings: Patient seen and evaluated with PA, please see PA note for further details. Patient is here for epigastric and left upper quadrant abdominal pains. Only mildly tender on palpation. Abdomen is fairly benign. Workup was initiated for further evaluation. Laboratory Tests Test 04/30/17 16:40 04/30/17 18:05 Urine Leukocyte Esterase TRACE (NEG) Blood Urea Nitrogen 6 MG/DL (7-18) Potassium Level 3.4 MEQ/L (3.5-5.1) Estimat Glomerular Filtration Rate 66 ML/MIN (>89) Lab work was fairly unremarkable and CAT scan did not show any signs of acute intra-abdominal processes. At this point, plan would be to release the patient would follow-up to primary care. Return for any worsening in symptoms as needed. The plan has been discussed with the patient and she states understanding. Data Data Last Documented VS Vital Signs Date Time Temp Pulse Resp B/P (MAP) Pulse Ox O2 Delivery O2 Flow Rate FiO2 04/30/17 17:58 16 98 Room Air 04/30/17 16:35 99.3 90 135/70 (91) Orders Orders Complete Blood Count With Diff (04/30/17 16:37) Comprehensive Metabolic Panel (04/30/17 16:37) Urinalysis - C+S If Indicated (04/30/17 16:37) Ed Urine Pregnancytest Poc (04/30/17 16:37) Lipase (04/30/17 17:33) Lactic Acid (04/30/17 17:33) Prothrombin Time / Inr (Pt) (04/30/17 17:33) Act Partial Throm Time (Ptt) (04/30/17 17:33) Ct Abd/Pel W Iv Contrast(Rout) (04/30/17 17:33) Iv Access Insert/Monitor (04/30/17 17:33) Ecg Monitoring (04/30/17 17:33) Oximetry (04/30/17 17:33) Ondansetron Inj (Zofran Inj) (04/30/17 17:45) Pantoprazole Inj (Protonix Inj) (04/30/17 17:45) Sodium Chlor 0.9% 1000 Ml Inj (Ns 1000 M (04/30/17 17:33) Sodium Chloride 0.9% Flush (Ns Flush) (04/30/17 17:45) Dicyclomine Inj (Bentyl Inj) (04/30/17 17:45) Al-Mag Hy-Si 40-40-4 Mg/Ml Liq (Mag-Al P (04/30/17 17:45) Lidocaine 2% Viscous (Xylocaine 2% Visco (04/30/17 17:45) Electrocardiogram (04/30/17 17:51) Diphenhydramine Inj (Benadryl Inj) (04/30/17 18:30) Iohexol 350 Inj (Omnipaque 350 Inj) (04/30/17 19:22) Labs Laboratory Tests Test 04/30/17 16:40 04/30/17 18:05 White Blood Count 8.6 TH/MM3 Red Blood Count 4.59 MIL/MM3 Hemoglobin 13.2 GM/DL Hematocrit 38.4 % Mean Corpuscular Volume 83.6 FL Mean Corpuscular Hemoglobin 28.7 PG Mean Corpuscular Hemoglobin Concent 34.4 % Red Cell Distribution Width 13.2 % Platelet Count 229 TH/MM3 Mean Platelet Volume 8.7 FL Neutrophils (%) (Auto) 65.1 % Lymphocytes (%) (Auto) 28.4 % Monocytes (%) (Auto) 5.3 % Eosinophils (%) (Auto) 0.8 % Basophils (%) (Auto) 0.4 % Neutrophils # (Auto) 5.6 TH/MM3 Lymphocytes # (Auto) 2.5 TH/MM3 Monocytes # (Auto) 0.5 TH/MM3 Eosinophils # (Auto) 0.1 TH/MM3 Basophils # (Auto) 0.0 TH/MM3 CBC Comment DIFF FINAL Differential Comment Urine Color YELLOW Urine Turbidity CLEAR Urine pH 7.0 Urine Specific [place] 1.011 Urine Protein NEG mg/dL Urine Glucose (UA) NEG mg/dL Urine Ketones NEG mg/dL Urine Occult Blood NEG Urine Nitrite NEG Urine Bilirubin NEG Urine Urobilinogen LESS THAN 2.0 MG/DL Urine Leukocyte Esterase TRACE Urine WBC 1 /hpf Urine Squamous Epithelial Cells 4 /hpf Microscopic Urinalysis Comment CULT NOT INDICATED Blood Urea Nitrogen 6 MG/DL Creatinine 0.91 MG/DL Random Glucose 98 MG/DL Total Protein 7.9 GM/DL Albumin 3.7 GM/DL Calcium Level 8.5 MG/DL Alkaline Phosphatase 90 U/L Aspartate Amino Transf (AST/SGOT) 21 U/L Alanine Aminotransferase (ALT/SGPT) 25 U/L Total Bilirubin 0.4 MG/DL Sodium Level 137 MEQ/L Potassium Level 3.4 MEQ/L Chloride Level 104 MEQ/L Carbon Dioxide Level 25.5 MEQ/L Anion Gap 8 MEQ/L Estimat Glomerular Filtration Rate 66 ML/MIN Prothrombin Time 10.0 SEC Prothromb Time International Ratio 1.0 RATIO Activated Partial Thromboplast Time 25.3 SEC Lactic Acid Level 0.9 mmol/L Lipase 130 U/L [facility] Medical Record Reviewed: Yes Supervised Visit with JEOVANY: Yes Diagnosis Primary Impression: Abdominal pain Disposition: 01 DISCHARGE HOME Condition: Stable SoonKeysha robin MD Apr 30, 2017 19:48
[2017-04-30 19:52] VITALS: BP 132/67; PULSE 87; RESP 16; O2SAT 96
[2017-04-30] MEDS ORDERED: DICY10 PO (19:56)
[2017-04-30] MEDS ORDERED: ZOFR4TAB3 SL (19:56)
[2017-04-30] MEDS ORDERED: PROT40TA PO (19:56)
--- NOTE | 2017-04-30 19:57 | PD ---
Physical Exam Date Seen by Provider: Apr 30, 2017 Time Seen by Provider: 19:50 Narrative For full history and physical examination please see previous providers note. I assumed care of this patient change his shift, CT scan was ordered and pending at that time. Data Data Last Documented VS Vital Signs Date Time Temp Pulse Resp B/P (MAP) Pulse Ox O2 Delivery O2 Flow Rate FiO2 04/30/17 17:58 16 98 Room Air 04/30/17 16:35 99.3 90 135/70 (91) Orders Orders Complete Blood Count With Diff (04/30/17 16:37) Comprehensive Metabolic Panel (04/30/17 16:37) Urinalysis - C+S If Indicated (04/30/17 16:37) Ed Urine Pregnancytest Poc (04/30/17 16:37) Lipase (04/30/17 17:33) Lactic Acid (04/30/17 17:33) Prothrombin Time / Inr (Pt) (04/30/17 17:33) Act Partial Throm Time (Ptt) (04/30/17 17:33) Ct Abd/Pel W Iv Contrast(Rout) (04/30/17 17:33) Iv Access Insert/Monitor (04/30/17 17:33) Ecg Monitoring (04/30/17 17:33) Oximetry (04/30/17 17:33) Ondansetron Inj (Zofran Inj) (04/30/17 17:45) Pantoprazole Inj (Protonix Inj) (04/30/17 17:45) Sodium Chlor 0.9% 1000 Ml Inj (Ns 1000 M (04/30/17 17:33) Sodium Chloride 0.9% Flush (Ns Flush) (04/30/17 17:45) Dicyclomine Inj (Bentyl Inj) (04/30/17 17:45) Al-Mag Hy-Si 40-40-4 Mg/Ml Liq (Mag-Al P (04/30/17 17:45) Lidocaine 2% Viscous (Xylocaine 2% Visco (04/30/17 17:45) Electrocardiogram (04/30/17 17:51) Diphenhydramine Inj (Benadryl Inj) (04/30/17 18:30) Iohexol 350 Inj (Omnipaque 350 Inj) (04/30/17 19:22) Labs Laboratory Tests Test 04/30/17 16:40 04/30/17 18:05 White Blood Count 8.6 TH/MM3 Red Blood Count 4.59 MIL/MM3 Hemoglobin 13.2 GM/DL Hematocrit 38.4 % Mean Corpuscular Volume 83.6 FL Mean Corpuscular Hemoglobin 28.7 PG Mean Corpuscular Hemoglobin Concent 34.4 % Red Cell Distribution Width 13.2 % Platelet Count 229 TH/MM3 Mean Platelet Volume 8.7 FL Neutrophils (%) (Auto) 65.1 % Lymphocytes (%) (Auto) 28.4 % Monocytes (%) (Auto) 5.3 % Eosinophils (%) (Auto) 0.8 % Basophils (%) (Auto) 0.4 % Neutrophils # (Auto) 5.6 TH/MM3 Lymphocytes # (Auto) 2.5 TH/MM3 Monocytes # (Auto) 0.5 TH/MM3 Eosinophils # (Auto) 0.1 TH/MM3 Basophils # (Auto) 0.0 TH/MM3 CBC Comment DIFF FINAL Differential Comment Urine Color YELLOW Urine Turbidity CLEAR Urine pH 7.0 Urine Specific [place] 1.011 Urine Protein NEG mg/dL Urine Glucose (UA) NEG mg/dL Urine Ketones NEG mg/dL Urine Occult Blood NEG Urine Nitrite NEG Urine Bilirubin NEG Urine Urobilinogen LESS THAN 2.0 MG/DL Urine Leukocyte Esterase TRACE Urine WBC 1 /hpf Urine Squamous Epithelial Cells 4 /hpf Microscopic Urinalysis Comment CULT NOT INDICATED Blood Urea Nitrogen 6 MG/DL Creatinine 0.91 MG/DL Random Glucose 98 MG/DL Total Protein 7.9 GM/DL Albumin 3.7 GM/DL Calcium Level 8.5 MG/DL Alkaline Phosphatase 90 U/L Aspartate Amino Transf (AST/SGOT) 21 U/L Alanine Aminotransferase (ALT/SGPT) 25 U/L Total Bilirubin 0.4 MG/DL Sodium Level 137 MEQ/L Potassium Level 3.4 MEQ/L Chloride Level 104 MEQ/L Carbon Dioxide Level 25.5 MEQ/L Anion Gap 8 MEQ/L Estimat Glomerular Filtration Rate 66 ML/MIN Prothrombin Time 10.0 SEC Prothromb Time International Ratio 1.0 RATIO Activated Partial Thromboplast Time 25.3 SEC Lactic Acid Level 0.9 mmol/L Lipase 130 U/L [facility] Medical Record Reviewed: Yes Supervised Visit with JEOVANY: Yes Interpretation(s) Laboratory Tests Test 04/30/17 16:40 04/30/17 18:05 White Blood Count 8.6 TH/MM3 Red Blood Count 4.59 MIL/MM3 Hemoglobin 13.2 GM/DL Hematocrit 38.4 % Mean Corpuscular Volume 83.6 FL Mean Corpuscular Hemoglobin 28.7 PG Mean Corpuscular Hemoglobin Concent 34.4 % Red Cell Distribution Width 13.2 % Platelet Count 229 TH/MM3 Mean Platelet Volume 8.7 FL Neutrophils (%) (Auto) 65.1 % Lymphocytes (%) (Auto) 28.4 % Monocytes (%) (Auto) 5.3 % Eosinophils (%) (Auto) 0.8 % Basophils (%) (Auto) 0.4 % Neutrophils # (Auto) 5.6 TH/MM3 Lymphocytes # (Auto) 2.5 TH/MM3 Monocytes # (Auto) 0.5 TH/MM3 Eosinophils # (Auto) 0.1 TH/MM3 Basophils # (Auto) 0.0 TH/MM3 CBC Comment DIFF FINAL Differential Comment Urine Color YELLOW Urine Turbidity CLEAR Urine pH 7.0 Urine Specific [place] 1.011 Urine Protein NEG mg/dL Urine Glucose (UA) NEG mg/dL Urine Ketones NEG mg/dL Urine Occult Blood NEG Urine Nitrite NEG Urine Bilirubin NEG Urine Urobilinogen LESS THAN 2.0 MG/DL Urine Leukocyte Esterase TRACE Urine WBC 1 /hpf Urine Squamous Epithelial Cells 4 /hpf Microscopic Urinalysis Comment CULT NOT INDICATED Blood Urea Nitrogen 6 MG/DL Creatinine 0.91 MG/DL Random Glucose 98 MG/DL Total Protein 7.9 GM/DL Albumin 3.7 GM/DL Calcium Level 8.5 MG/DL Alkaline Phosphatase 90 U/L Aspartate Amino Transf (AST/SGOT) 21 U/L Alanine Aminotransferase (ALT/SGPT) 25 U/L Total Bilirubin 0.4 MG/DL Sodium Level 137 MEQ/L Potassium Level 3.4 MEQ/L Chloride Level 104 MEQ/L Carbon Dioxide Level 25.5 MEQ/L Anion Gap 8 MEQ/L Estimat Glomerular Filtration Rate 66 ML/MIN Prothrombin Time 10.0 SEC Prothromb Time International Ratio 1.0 RATIO Activated Partial Thromboplast Time 25.3 SEC Lactic Acid Level 0.9 mmol/L Lipase 130 U/L Vital Signs Date Time Temp Pulse Resp B/P (MAP) Pulse Ox O2 Delivery O2 Flow Rate FiO2 04/30/17 17:58 16 98 Room Air 04/30/17 16:35 99.3 90 16 135/70 (30) 98 Narrative Course Patient is a 46-year-old female that presented to the emergency department for evaluation of 2 weeks of vague upper abdominal pain. She reported that it moves from left to right upper quadrants. She reports nausea and vomiting and an episode of hemoptysis. Patient stated that she was off of her Effexor and Abilify because she ran out, this was stopped abruptly however she started again 2 days ago. Patient is well-appearing, she is able to tolerate oral fluids. CT scan of the abdomen and pelvis shows diverticulosis, a stable liver cyst with no acute findings. Patient reported improvement in her symptoms with administration of Bentyl. She had no acute or concerning lab findings. Her vital signs have been stable. Patient will be discharged home at this time. She was reassured that there were no acute findings, she was given strict return precautions. She was encouraged to follow-up with her primary doctor. She will be provided with a prescription for Protonix, Bentyl and Zofran. She verbalized understanding of discharge instructions and so will need to return if her symptoms worsened. She is stable for discharge. Diagnosis Primary Impression: Abdominal pain Qualified Codes: R10.10 - Upper abdominal pain, unspecified Referrals: Primary Care Physician 2 days Patient Instructions: Abdominal Pain (ED), Acute Nausea and Vomiting (ED), General Instructions Departure Forms: Tests/Procedures, Work Release Enter return to work date: May 01, 2017 Additional Instruction: Follow-up with your primary doctor Return to emergency department immediately for any new or worsening symptoms Take medications as needed and as directed Maintain adequate fluid intake Maintain a bland, easy to digest diet, increasing as tolerated. Med/Other Pt SpecificInfo: Prescription(s) given Scripts Pantoprazole (Protonix) 40 Mg Tab 40 MG PO DAILY for Reflux, #30 TAB 0 Refills Prov: Michelle Garcia 04/30/17 Ondansetron Odt (Zofran Odt) 4 Mg Tab 4 MG SL Q6HR Y for Nausea/Vomiting, #15 TAB 0 Refills Prov: Michelle Garcia 04/30/17 Dicyclomine (Bentyl) 10 Mg Cap 10 MG PO TID Y for Bowel Management, #15 CAP 0 Refills Prov: Michelle Garcia 04/30/17 Disposition: 01 DISCHARGE HOME Condition: Stable Michelle Garcia Apr 30, 2017 19:57
--- NOTE | 2017-05-01 11:18 | EKG ---
Date Performed: 04/30/2017 Time Performed: 18:01:10 PTAGE: 46 years EKG: Sinus rhythm NORMAL ECG Since the prior tracing, there has been no significant change PREVIOUS TRACING DOCTOR: Di Osborne Interpretating Date/Time 05/01/2017 11:15:29
== END 2017-04-30 20:03 | disposition home or self-care (01) ==
LOC: NEPD 16:28
DX: R10.12 Left upper quadrant pain (principal); R11.2 Nausea with vomiting, unspecified; R04.2 Hemoptysis; I10 Essential (primary) hypertension; R19.7 Diarrhea, unspecified; Z72.0 Tobacco use
CPT/HCPCS: 74177; 80053; 81001; 83605; 83690; 84703; 85025; 85610; 85730; 93005; 96361; 96372; 96374; 96375; 99285; C9113; J0500; J1200; J2405; J7030; Q9967

== ENCOUNTER 2017-06-02 11:56 | Emergency (ER) | payer MEDICAID ==
[~2017-06-02] VITALS: Ht 167.6 cm; Wt 90.9 kg
[~2017-06-02 11:56] MED LIST changes: +DICY10 PO; -LITH300T3 PO; +LURA1TAB2 PO; +PROT40TA PO; +TRAZ1TAB14 PO; -WELLTAB39 PO; +ZOFR4TAB3 SL
[2017-06-02 12:08] VITALS: BP 143/65; PULSE 76; RESP 18; TEMP 98.9; O2SAT 100
[2017-06-02] MEDS ORDERED: EFFE150C PO (12:26)
--- NOTE | 2017-06-02 12:56 | RADRPT ---
EXAM DATE/TIME: 06/02/2017 12:45 [facility] COMPARISON: No previous studies available for comparison. INDICATIONS : Cough. MEDICAL HISTORY : Hypertension. SURGICAL HISTORY : Appendectomy. ENCOUNTER: Initial ACUITY: 2 months PAIN SCORE: 0/10 LOCATION: Bilateral chest FINDINGS: PA and lateral views of the chest demonstrate the lungs to be symmetrically aerated without evidence of mass, infiltrate or effusion. The cardiomediastinal contours are unremarkable. Osseous structure s are intact. CONCLUSION: No evidence of acute cardiopulmonary disease. Siddharth Leon MD on June 02, 2017 at 12:55 Board Certified Radiologist. This report was verified electronically.
[2017-06-02] MEDS ORDERED: BENZ100 PO (13:09)
--- NOTE | 2017-06-02 13:13 | PD ---
HPI Chief Complaint: Cold / Flu Symptoms Time Seen by Provider: 12:42 Travel History International Travel<30 days: No Contact w/Intl Traveler<30days: No Traveled to known affect area: No History of Present Illness HPI 46-year-old female presents for evaluation of a cough. Symptoms started 2 months ago. She reports that initially she had influenza and the sinus infection but that resolved. She has had a lingering dry cough since then. She denies any sneezing, congestion, sore throat, itchy or watery eyes, fevers or chills, shortness of breath, chest pain. She denies any recent travel. She reports that her work will not let her return to work until she quits coughing. She does smoke tobacco products. Denies any history of COPD or asthma. Denies any CORNELL inhibitor use. Denies any heartburn or acid reflux type symptoms. She has no other complaints at this time. PFSH Past Medical History Asthma: Yes Blood Disorders: No Bipolar Disorder: Yes Anxiety: Yes Depression: Yes Cancer: No Cardiovascular Problems: Yes (htn on meds) Diabetes: No Diminished Hearing: No Endocrine: No Gastrointestinal Disorders: No Genitourinary: No Hiatal Hernia: No Hypertension: Yes Immune Disorder: No Implanted Vascular Access Dvce: No Musculoskeletal: No Neurologic: No Psychiatric: Yes (INSOMNIA) Reproductive: Yes (POLYCYSTIC OVARIES) Respiratory: No Immunizations Current: No Thyroid Disease: Yes PNEUMOCCOCAL Vaccine (Year): 2 ?: Not LMP: 1 month ago Menopausal: No : 4 Para: 1 Miscarriage: 0 : 3 Ovarian Cysts: Yes (POLY-CYSTIC DISEASE) Past Surgical History Appendectomy: Yes Body Medical Devices: insomnia Gynecologic Surgery: Yes (LEEP PROCEDURE) Joint Replacement: No Other Surgery: Yes Social History Alcohol Use: No Tobacco Use: Yes (1 PPD) Substance Use: No (IN RECOVERY) Allergies-Medications (Allergen,Severity, Reaction): Coded Allergies: penicillin G (Unverified Allergy, Severe, Hives, 06/02/17) acetaminophen (Unverified Adverse Reaction, Mild, NAUSEA, 06/02/17) propoxyphene (Unverified Adverse Reaction, Mild, NAUSEA, 06/02/17) *MDRO Multi-Drug Resistant Organism (Unverified Adverse Reaction, Unknown , 06/02/17) H/O MRSA per ED note Reported Meds & Prescriptions Reported Meds & Active Scripts Active Tessalon Perles (Benzonatate) 100 Mg Cap 100 Mg PO TID PRN Reported Effexor XR 24 HR (Venlafaxine HCl) 150 Mg Cap 275 Mg PO DAILY Trazodone (Trazodone HCl) 150 Mg Tablet 150 Mg PO HS Latuda (Lurasidone) 60 Mg Tab 60 Mg PO DAILY Amlodipine (Amlodipine Besylate) 2.5 Mg Tab 5 Mg PO DAILY Synthroid (Levothyroxine Sodium) 100 Mcg Tab 100 Mcg PO DAILY Review of Systems Except as stated in HPI: all other systems reviewed are Neg Physical Exam Narrative GENERAL: Well-developed well-nourished female no acute distress SKIN: Warm and dry. HEAD: Atraumatic. Normocephalic. EYES: Pupils equal and round. No scleral icterus. No injection or drainage. ENT: No nasal bleeding or discharge. Mucous membranes pink and moist. NECK: Trachea midline. No JVD. CARDIOVASCULAR: Regular rate and rhythm. No murmur appreciated. RESPIRATORY: No accessory muscle use. Clear to auscultation. Breath sounds equal bilaterally. Data Data Last Documented VS Vital Signs Date Time Temp Pulse Resp B/P (MAP) Pulse Ox O2 Delivery O2 Flow Rate FiO2 06/02/17 12:08 98.9 76 18 143/65 (91) 100 Orders Orders Chest, Pa & Lat (06/02/17 ) [facility] Medical Decision Making Medical Screen Exam Complete: Yes Emergency Medical Condition: Yes Medical Record Reviewed: Yes Differential Diagnosis Postinfectious cough, bronchitis, pneumonia, sinusitis, GERD Narrative Course This is a 46-year-old female smoker who presents with a lingering dry cough for 2 months after suffering from sinusitis and influenza. Physical examination is benign. Recommended smoking cessation. She will be discharged with Tessalon. Diagnosis Primary Impression: Cough Additional Instructions: Medication as prescribed. Avoid tobacco products. Follow-up with primary care physician. Return for any emergent medical conditions. Med/Other Pt SpecificInfo: Prescription(s) given Scripts Benzonatate (Tessalon Perles) 100 Mg Cap 100 MG PO TID Y for COUGH, #30 CAP 0 Refills Prov: Bernie Elise MD 06/02/17 Disposition: 01 DISCHARGE HOME Condition: Stable Tim Amaya Jun 02, 2017 13:13
[2017-06-02] MEDS ORDERED: BROMSYP PO (13:27)
== END 2017-06-02 13:44 | disposition home or self-care (01) ==
LOC: NEPK 11:56
DX: R05 Cough (principal); F17.210 Nicotine dependence, cigarettes, uncomplicated; I10 Essential (primary) hypertension; F31.9 Bipolar disorder, unspecified
CPT/HCPCS: 71046; 99283